=== PATIENT | female | born 1995 | race Two or more races ===

== ENCOUNTER 2020-08-30 17:26 | Inpatient (IN) | payer MEDICAID ==
[~2020-08-30] VITALS: Ht 162.6 cm; Wt 68.7 kg
[2020-08-30 19:02] LABS: Basophils # (auto) 0.1 10 ^3/uL (0-0.2); Basophils % (auto) 1.4 % (0.0-2.0); Eosinophils # (auto) 0 10 ^3/uL (0-0.8); Eosinophils % (auto) 0.4 % (0.0-7.0); Hemoglobin 11.7 g/dL (12.2-16.2); Lymphocytes # (auto) 2.8 10 ^3/uL (0.4-5.4); Lymphocytes % (auto) 36.1 % (10.0-50.0); Mean Corpuscular Hemoglobin 28.2 pg (28.0-32.0); Mean Corpuscular Hgb Conc. 31.6 g/dL (32.0-36.0); Mean Corpuscular Volume 89.4 fL (80.0-100.0); Monocytes # (auto) 0.5 10 ^3/uL (0-1.3); Monocytes % (auto) 6.6 % (0.0-12.0); Neutrophils # (auto) 4.4 10 ^3/uL (1.6-8.6); Neutrophils % (auto) 55.5 % (37.0-80.0); Nucleated Red Blood Cells % 0.4 %; Red Blood Cells 4.14 10^6/uL (4.0-5.20); Red Cell Distribution Width 16.2 % (11.8-14.3); White Blood Cell 7.9 10^3/uL (4.4-10.8)
[2020-08-30 19:20] LABS: Albumin 2.6 g/dL (3.4-5.0); BUN/Creatinine Ratio 14.6; Calcium 8.3 mg/dL (8.5-10.1); Magnesium 1.8 mg/dL (1.6-2.6); Potassium 3.8 mmol/L (3.5-5.1)
[2020-08-30 19:21] LABS: INR 1.2 (0.9-1.15); Partial Thromboplastin Time 25.9 sec (23.0-31.2)
[2020-08-30 19:25] LABS: Bilirubin, Total 1.4 mg/dL (0.2-1.0); Total Protein 5.9 g/dL (6.4-8.2)
[2020-08-30] MEDS ORDERED: IOHEXOL 350 MG/ML 100ML IJ ONE (20:27)
[2020-08-30 20:44] LABS: Urine Bacteria MANY /hpf (None Seen); Urine Blood Negative /uL (Negative); Urine Hyaline Cast FEW /lpf (0 - 2); Urine Mucus FEW (None Seen); Urine Specific Gravity 1.022 (1.001-1.035); Urine WBC 80 /hpf (0 - 5)
[2020-08-30 20:56] LABS: Amphetamine Screen, Urine POSITIVE (NEGATIVE); Barbiturate Scree,Urine NEGATIVE (NEGATIVE); Benzodiazephine Screen, Urine NEGATIVE (NEGATIVE); Cannabinoid Screen, Urine NEGATIVE (NEGATIVE); Cocaine Screen, Urine NEGATIVE (NEGATIVE); Phencyclidine Screen, Urine NEGATIVE (NEGATIVE)
[2020-08-30 21:04] LABS: Opiate Scree,Urine NEGATIVE (NEGATIVE)
[2020-08-30] MEDS ORDERED: NITROGLYCERIN 0.4 MG SL TAB SL PRN (23:30)
[2020-08-30] MEDS ORDERED: ONDANSETRON HCL 4 MG/2 ML VIAL IV PRN (23:30)
[2020-08-30] MEDS ORDERED: MORPHINE SULF INJ 2 MG/ML SYRINGE 1ML IV PRN (23:30)
[2020-08-30] MEDS ORDERED: ACETAMINOPHEN 325 MG TAB PO PRN (23:30)
[2020-08-30] MEDS ORDERED: HYDROcodone-ACET 5/325MG TAB PO PRN (23:30)
[2020-08-31] MEDS: SODIUM CHLORIDE 0.9% 1,000 ML IV SCH ×2 (00:09→09:30)
[2020-08-31 00:13] LABS: Amylase 34 U/L (25-115); Lipase 158 U/L (73-393)
[2020-08-31 05:00] VITALS: BP 103/73
[2020-08-31] MEDS ORDERED: IBUP600T27 PO (05:11)
[2020-08-31] MEDS ORDERED: metroNIDAZOLE 500MG/100ML 100 ML IV SCH (06:00)
[2020-08-31 06:28] LABS: Basophils # (auto) 0 10 ^3/uL (0-0.2); Basophils % (auto) 0.4 % (0.0-2.0); Eosinophils # (auto) 0 10 ^3/uL (0-0.8); Eosinophils % (auto) 0.5 % (0.0-7.0); Hemoglobin 11.9 g/dL (12.2-16.2); Lymphocytes # (auto) 2.8 10 ^3/uL (0.4-5.4); Lymphocytes % (auto) 36.9 % (10.0-50.0); Mean Corpuscular Hemoglobin 28.6 pg (28.0-32.0); Mean Corpuscular Hgb Conc. 32.1 g/dL (32.0-36.0); Monocytes # (auto) 0.6 10 ^3/uL (0-1.3); Monocytes % (auto) 8.4 % (0.0-12.0); Neutrophils # (auto) 4.1 10 ^3/uL (1.6-8.6); Neutrophils % (auto) 53.8 % (37.0-80.0); Nucleated Red Blood Cells % 0.3 %; Red Blood Cells 4.16 10^6/uL (4.0-5.20); Red Cell Distribution Width 16.3 % (11.8-14.3); White Blood Cell 7.6 10^3/uL (4.4-10.8)
[2020-08-31 06:49] LABS: BUN/Creatinine Ratio 14.6; Calcium 8.2 mg/dL (8.5-10.1); Potassium 3.8 mmol/L (3.5-5.1)
[2020-08-31 08:34] VITALS: BP 111/83
[2020-08-31] MEDS: levoFLOXacin 500MG 100 ML IV SCH (09:44)
[2020-08-31] MEDS ORDERED: FUROSEMIDE 20 MG/2 ML VIAL IV SCH (11:30)
[2020-08-31] MEDS: POTASSIUM CHL 10 Meq TABLET PO SCH ×2 (12:00→22:14)
[2020-08-31 12:43] VITALS: BP 117/75
[2020-08-31 16:35] VITALS: BP 110/77
[2020-08-31] MEDS ORDERED: LORazepam 2MG/ML-1ML VIAL IV ONE (18:45)
[2020-08-31] MEDS ORDERED: FOLIC ACID 1 MG, MULTIPLE VITAMIN 10 ML, MAGNESIUM SULF SDV 50% 8 MEQ, THIAMINE INJ 100... INJ SCH ×5 (18:51)
[2020-08-31] MEDS: GABAPENTIN 400 MG CAP PO SCH (19:04)
[2020-08-31 22:00] VITALS: BP 127/79
[2020-08-31] MEDS ORDERED: FUROSEMIDE 40 MG/4 ML VIAL IV SCH (22:30)
[2020-08-31] MEDS: FUROSEMIDE 40 MG/4 ML VIAL IV SCH (23:17)
[2020-08-31] MEDS: FOLIC ACID 1 MG, MULTIPLE VITAMIN 10 ML, MAGNESIUM SULF SDV 50% 8 MEQ, THIAMINE INJ 100... INJ SCH ×5 (23:35)
[2020-09-01 05:00] VITALS: BP 99/63
[2020-09-01] MEDS: FUROSEMIDE 40 MG/4 ML VIAL IV SCH ×2 (06:00→18:00)
[2020-09-01] MEDS: GABAPENTIN 400 MG CAP PO SCH ×3 (06:30→22:08)
[2020-09-01 08:35] VITALS: BP 105/77
[2020-09-01] MEDS: POTASSIUM CHL 10 Meq TABLET PO SCH ×2 (10:00→22:07)
[2020-09-01] MEDS: levoFLOXacin 500MG 100 ML IV SCH (10:00)
[2020-09-01 12:53] VITALS: BP 104/74
[2020-09-01 16:33] VITALS: BP 112/78
[2020-09-01] MEDS ORDERED: FUROSEMIDE 40 MG/4 ML VIAL IV SCH (18:00)
[2020-09-01] MEDS ORDERED: LEVO500T31 PO (18:11)
[2020-09-01] MEDS ORDERED: FURO1TAB33 PO (18:11)
[2020-09-01] MEDS ORDERED: THIA100T5 PO (18:11)
[2020-09-01] MEDS ORDERED: FOLI1TAB6 PO (18:11)
[2020-09-01] MEDS ORDERED: GABA300C10 PO (18:11)
[2020-09-01] MEDS ORDERED: POTA10TA32 PO (18:11)
[2020-09-01] MEDS ORDERED: METO25TA5 PO (18:11)
[2020-09-01] MEDS: FOLIC ACID 1 MG, MULTIPLE VITAMIN 10 ML, MAGNESIUM SULF SDV 50% 8 MEQ, THIAMINE INJ 100... INJ SCH ×5 (22:00)
[2020-09-01 22:20] VITALS: BP 118/83
[2020-09-01 22:32] VITALS: BP 118/83
== END 2020-09-02 00:15 | disposition home or self-care (01) | DRG 194 ==
LOC: ER 17:26 → TELE 23:20 → TELE-CENTR 08-31 02:57
PROVIDERS: ADMIT Internal Medicine; ATTEND Internal Medicine
DX: I50.43 Acute on chronic combined systolic (congestive) and diastolic (congestive) heart failure (principal); J96.01 Acute respiratory failure with hypoxia; F15.10 Other stimulant abuse, uncomplicated; R60.0 Localized edema; F17.210 Nicotine dependence, cigarettes, uncomplicated; N39.0 Urinary tract infection, site not specified; F41.9 Anxiety disorder, unspecified; Z20.822 Contact with and (suspected) exposure to COVID-19; M79.89 Other specified soft tissue disorders; R00.0 Tachycardia, unspecified; R74.01 Elevation of levels of liver transaminase levels; Z80.9 Family history of malignant neoplasm, unspecified; Z82.49 Family history of ischemic heart disease and other diseases of the circulatory system; Z83.3 Family history of diabetes mellitus; K76.0 Fatty (change of) liver, not elsewhere classified; Z97.5 Presence of (intrauterine) contraceptive device; F10.10 Alcohol abuse, uncomplicated
CPT/HCPCS: 36415; 71045; 71275; 74176; 76705; 78226; 80048; 80053; 80307; 81001; 81025; 82150; 82728; 83690; 83735; 83880; 84484; 85025; 85379; 85610; 85730; 86141; 87040; 87086; 87426; 93005; 93306; 93970; 96361; 96365; 96375; 99291; G0378; J1956; J3490

== ENCOUNTER 2020-09-27 19:27 | Emergency (ER) | payer MEDICAID ==
[~2020-09-27] VITALS: Ht 162.6 cm; Wt 69.9 kg
[~2020-09-27 19:27] MED LIST: FOLI1TAB6 PO; FURO1TAB33 PO; GABA300C10 PO; LEVO500T31 PO; METO25TA5 PO; POTA10TA32 PO; THIA100T5 PO
[2020-09-27 20:52] LABS: Basophils # (auto) 0 10 ^3/uL (0-0.2); Basophils % (auto) 0.3 % (0.0-2.0); Eosinophils # (auto) 0 10 ^3/uL (0-0.8); Eosinophils % (auto) 0.1 % (0.0-7.0); Hematocrit 36.9 % (36.0-46.0); Hemoglobin 11.5 g/dL (12.2-16.2); Lymphocytes # (auto) 2.9 10 ^3/uL (0.4-5.4); Lymphocytes % (auto) 30.3 % (10.0-50.0); Mean Corpuscular Hemoglobin 27.7 pg (28.0-32.0); Mean Corpuscular Hgb Conc. 31.1 g/dL (32.0-36.0); Monocytes # (auto) 0.7 10 ^3/uL (0-1.3); Neutrophils # (auto) 5.9 10 ^3/uL (1.6-8.6); Neutrophils % (auto) 62.3 % (37.0-80.0); Nucleated Red Blood Cells % 1.7 %; Red Blood Cells 4.14 10^6/uL (4.0-5.20); Red Cell Distribution Width 18.7 % (11.8-14.3); White Blood Cell 9.5 10^3/uL (4.4-10.8)
[2020-09-28] MEDS ORDERED: IOHEXOL 350 MG/ML 100ML IJ ONE (00:52)
[2020-09-28 01:55] LABS: Basophils # (auto) 0.1 10 ^3/uL (0-0.2); Basophils % (auto) 0.8 % (0.0-2.0); Eosinophils # (auto) 0 10 ^3/uL (0-0.8); Eosinophils % (auto) 0.1 % (0.0-7.0); Hematocrit 40.5 % (36.0-46.0); Hemoglobin 12.8 g/dL (12.2-16.2); Lymphocytes # (auto) 3.7 10 ^3/uL (0.4-5.4); Mean Corpuscular Hemoglobin 28.3 pg (28.0-32.0); Mean Corpuscular Hgb Conc. 31.6 g/dL (32.0-36.0); Mean Corpuscular Volume 89.5 fL (80.0-100.0); Monocytes # (auto) 0.7 10 ^3/uL (0-1.3); Monocytes % (auto) 6.5 % (0.0-12.0); Neutrophils # (auto) 6.1 10 ^3/uL (1.6-8.6); Neutrophils % (auto) 57.6 % (37.0-80.0); Nucleated Red Blood Cells % 1.9 %; Red Blood Cells 4.53 10^6/uL (4.0-5.20); Red Cell Distribution Width 19.1 % (11.8-14.3); White Blood Cell 10.5 10^3/uL (4.4-10.8)
[2020-09-28 02:26] LABS: Potassium 4.2 mmol/L (3.5-5.1)
[2020-09-28 02:30] LABS: BUN/Creatinine Ratio 17.5; Calcium 8.5 mg/dL (8.5-10.1)
[2020-09-28] MEDS ORDERED: AZITHROMYCIN 500MG/ 250ML 250 ML IV ONE (10:15)
[2020-09-28] MEDS ORDERED: ENOXAPARIN SOD 80 MG/0.8ML SYRINGE SC ONE (10:15)
[2020-09-28] MEDS ORDERED: cefTRIAXone 1GM/50ML D5W 50 ML IV ONE (10:15)
[2020-09-28] MEDS ORDERED: FUROSEMIDE 40 MG/4 ML VIAL IV ONE (10:15)
[2020-09-28 11:22] LABS: Lactic Acid w/Reflex 3.7 mmol/L (0.4-2.0)
[2020-09-28] MEDS ORDERED: LEVO500T31 PO (13:39)
[2020-09-28] MEDS ORDERED: ALBUAER3 IN (13:39)
[2020-09-28] MEDS ORDERED: FURO1TAB31 PO (13:39)
[2020-09-28 15:35] VITALS: BP 79/56
== END 2020-09-28 17:30 | disposition home or self-care (01) ==
LOC: ER 19:27
DX: J18.9 Pneumonia, unspecified organism (principal); I50.9 Heart failure, unspecified; F17.210 Nicotine dependence, cigarettes, uncomplicated; F12.10 Cannabis abuse, uncomplicated; F15.10 Other stimulant abuse, uncomplicated; Z20.822 Contact with and (suspected) exposure to COVID-19
CPT/HCPCS: 36415; 71275; 78582; 80048; 83605; 83735; 83880; 84702; 85025; 85379; 87040; 87426; 93005; 93970; 96365; 96366; 96367; 96372; 96375; 99285; J0456; J0696; J1650; J1940; Q9967

== ENCOUNTER 2021-01-31 13:50 | Emergency (ER) | payer MEDICAID ==
[~2021-01-31] VITALS: Ht 162.6 cm; Wt 59.0 kg
[~2021-01-31 13:50] MED LIST changes: +ALBUAER3 IN; +FURO1TAB31 PO
[2021-01-31 13:59] VITALS: BP 112/80
== END 2021-01-31 18:02 | disposition left against medical advice (07) ==
LOC: ER 13:50
DX: I50.9 Heart failure, unspecified (principal); R10.9 Unspecified abdominal pain; F17.210 Nicotine dependence, cigarettes, uncomplicated; Z79.2 Long term (current) use of antibiotics; Z79.899 Other long term (current) drug therapy; Z20.822 Contact with and (suspected) exposure to COVID-19
CPT/HCPCS: 36415; 87426